=== PATIENT | male | born 1940 | race Asian ===

== ENCOUNTER 2016-12-07 22:30 | Emergency (ER) | payer MEDICARE, OTHER ==
[2016-12-07 22:51] VITALS: BP 150/71
--- NOTE | 2016-12-08 00:03 | ERNOTE ---
Lower Extremity HPI - General Lower Extremities Pain: thigh: right - rash and pain Time Seen by Provider: 12/07/16 23:54 Source: patient Exam Limitations: no limitations - Immun/Allergies/Home Medications Immunizations: IMMUNIZATION HX Immunizations Up to Date Yes History of Influenza Vaccine Yes Hx Pneumococcal Vaccination Yes Allergies/Adverse Reactions: Allergies Allergy/AdvReac Type Severity Reaction Status Date / Time No Known Drug Allergies Allergy Verified 12/07/16 22:52 Home Medications: HOME MEDICATIONS valACYclovir HCL [Valtrex] 1,000 mg PO TID #21 tab 12/08/16 [Last Taken Unknown] - History of Present Illness Narrative: Pt states he has had pain in his leg for about a week. Today he broke out in a rash in the same area Occurred: last week Review of Systems - Review of Systems Constitutional: Absent: recent illness, fever, chills EYE: Present: no symptoms reported ENT: Present: no symptoms reported Respiratory: Absent: cough Cardiology: Present: no symptoms reported Gastrointestinal/Abdominal: Present: no symptoms reported Genitourinary: Present: no symptoms reported Musculoskeletal: Present: muscle pain Skin: Present: See HPI Neurological: Absent: numbness, tingling Endocrine: Present: no symptoms reported Hematologic/Lymphatic: Present: no symptoms reported Psych: Present: no symptoms reported - Patient's Past Medical History Patient History - Medical: No pertinent hx Patient History - Cardiac/Respiratory: Hyperlipidemia Patient History - Cancer: No Hx of Cancer Patient History - Surgical Procedures: No surgical history Patient History - Other: None - Social History Living Situations: home Psych History: No pertinent hx Smoking Status: Never smoker Alcohol Use: none Drug Use: none - Immunizations Immunizations Up to Date: Yes Hx Pneumococcal Vaccination: Yes History of Influenza Vaccine: Yes Physical Exam - Physical Exam General Appearance: Present: wd/wn, alert, no apparent distress Head Exam: Present: normal inspection Eye Exam: Normal inspection: bilateral Neck: Present: normal inspection, nontender Respiratory: Present: no respiratory distress, no accessory muscle use Extremity Exam: Present: other - right thigh rash Neurological Exam: Present: alert, oriented, normal mood/affect Skin Exam: Present: skin rash - papular- right thigh in a dermatomal pattern anterior and down to the knee ED Progress - Vital Signs Vital Signs: Vital Signs 12/07/16 22:47 Temperature 36.9 C Pulse Rate 65 Respiratory 18 Rate Blood Pressure 150/71 O2 Sat by Pulse 98 Oximetry - Progress/Reassessment Chief Complaint: Lower Extremity Pain/ Injury Departure Clinical Impression: Shingles Qualifiers: Herpes zoster complications: without complications Qualified Code(s): B02.9 - Zoster without complications - Departure Disposition: Home self-care Condition: Good Instructions: Shingles, [id number] Referrals: Tayla Villavicencio FNP [Primary Care Provider] - Prescriptions: valACYclovir HCL [Valtrex] 1,000 mg PO TID #21 tab
[2016-12-08] MEDS ORDERED: ACYCLOVIR 800 MG TABLET PO ONE (00:10)
[2016-12-08] MEDS ORDERED: ACYCLOVIR 800 MG TABLET ONE (00:15)
--- OUTSIDE RECORDS SUMMARY | 2016-12-08 00:39 | XMS REPORT | Summary of Care ---
:1940 Author Organization [facility] Address [address] [place] [id number] Care Team Providers Name Role Phone Tere Villavicencio Primary Care Physician Encounter Date(s): 05/23/16 - 05/23/[address] [address] [place] Discharge Disposition: 01 Discharged to Home or Self Care Attending Physician: [place] Driver Referring Physician: [place] Driver Vital Signs No data available for this section Problem List Condition Effective Dates Status Health Status Informant Benign prostatic Active hypertrophy(Confirmed) Gastric ulcer NOS(Confirmed) Active Hypercholesteremia(Confirmed) Active Personal history of colonic Active polyps(Confirmed) Allergies, Adverse Reactions, Alerts Substance Reaction Severity Status Effexor Nausea and vomiting Active Lexapro Nausea and vomiting Active Paxil Nausea and vomiting Active Rozerem not effective Active terazosin Dizzy Active traZODone no relief Active Zoloft Nausea and vomiting Active zolpidem not effective Active Medications ALPRAZolam 0.25 mg oral tablet 1 tab(s), Oral, HS, PRN insomnia, # 30 tab(s), 5 Refill(s), Start Date: 6:50:28 CDT, called to pharmacy (Rx) Start Date: 02/10/16 Status: OrderedALPRAZolam 0.25 mg oral tablet 1 tab(s), Oral, HS, PRN insomnia, # 30 tab(s), 5 Refill(s), Start Date: 14:15:00 CDT Start Date: 02/09/16 Stop Date: 02/10/16 Status: DiscontinuedCalcium 600+D 600 mg-200 intl units oral tablet 1 tab(s), Oral, BID, 0 Refill(s), Start Date: 05/22/14 16:27:00 HR PAYROLL COORDINATOR Start Date: 05/22/14 Status: OrderedDaily Multiple Vitamins 1 tab(s), Oral, Daily, 0 Refill(s), Start Date: 05/22/14 16:28:00 HR PAYROLL COORDINATOR Start Date: 05/22/14 Status: OrderedHYDROcodone-acetaminophen 5 mg-325 mg oral tablet 1-2 tabs, Oral, q4hr, PRN for pain, # 40 tab(s), 0 Refill(s), Start Date: 11:36:04 CDT Start Date: 09/08/14 Stop Date: 05/25/15 Status: CompletedHYDROcodone-acetaminophen 5 mg-325 mg oral tablet 1-2 tabs, Oral, q4hr, PRN for pain, # 40 tab(s), 0 Refill(s), Start Date: 11:04:33 HR PAYROLL COORDINATOR Start Date: 05/25/15 Stop Date: 02/09/16 Status: DiscontinuedHYDROcodone-acetaminophen 5 mg-325 mg oral tablet 1-2 tabs, Oral, q4hr, PRN for pain, # 40 tab(s), 1 Refill(s), Start Date: 17:09:00 CDT, called to pharmacy (Rx) Start Date: 01/24/14 Stop Date: 09/08/14 Status: CompletedHYDROcodone-acetaminophen 5 mg-325 mg oral tablet 1-2 tabs, Oral, q4hr, PRN for pain, 0 Refill(s) Start Date: 01/24/14 Stop Date: 01/24/14 Status: DiscontinuedHYDROcodone-acetaminophen 5mg-325mg oral tablet 1-2 tabs, Oral, q4hr, PRN for pain, # 40 tab(s), 0 Refill(s), Start Date: 13:56:47 CDT Start Date: 02/09/16 Status: OrderedPriLOSEC 20 mg oral delayed release capsule 1 cap(s), Oral, Daily, # 90 cap(s), 3 Refill(s), Start Date: 02/09/16 13:56:51 CDT, Pharmacy: [facility] Start Date: 02/09/16 Stop Date: 05/12/16 Status: CompletedPriLOSEC 20 mg oral delayed release capsule 1 cap(s), Oral, Daily, # 90 cap(s), 3 Refill(s), Start Date: 05/23/14 15:50:00 HR PAYROLL COORDINATOR, Pharmacy: [facility] Start Date: 05/23/14 Stop Date: 05/25/15 Status: DiscontinuedPriLOSEC 20 mg oral delayed release capsule 1 cap(s), Oral, Daily, # 90 cap(s), 3 Refill(s), Start Date: 05/12/16 17:07:50 HR PAYROLL COORDINATOR, Pharmacy: [facility] Start Date: 05/12/16 Status: OrderedPriLOSEC 20 mg oral delayed release capsule 1 cap(s), Oral, Daily, # 30 cap(s), 0 Refill(s), Start Date: 05/22/14 16:28:00 HR PAYROLL COORDINATOR Start Date: 05/22/14 Stop Date: 05/23/14 Status: DiscontinuedPriLOSEC 20 mg oral delayed release capsule 1 cap(s), Oral, Daily, # 90 cap(s), 3 Refill(s), Start Date: 05/25/15 11:37:49 HR PAYROLL COORDINATOR, Pharmacy: [facility] Start Date: 05/25/15 Stop Date: 02/09/16 Status: Discontinuedsimvastatin 40 mg oral tablet 1 tab(s), Oral, HS, # 90 tab(s), 3 Refill(s), Start Date: 02/09/16 13:56:53 CDT , Pharmacy: [facility] Start Date: 02/09/16 Stop Date: 05/12/16 Status: Completedsimvastatin 40 mg oral tablet 1 tab(s), Oral, HS, # 90 tab(s), 3 Refill(s), Start Date: 05/23/14 15:51:00 HR PAYROLL COORDINATOR , Pharmacy: [facility] Start Date: 05/23/14 Stop Date: 05/25/15 Status: Discontinuedsimvastatin 40 mg oral tablet 1 tab(s), Oral, HS, # 90 tab(s), 3 Refill(s), Start Date: 05/12/16 17:07:37 HR PAYROLL COORDINATOR , Pharmacy: [facility] Start Date: 05/12/16 Status: Orderedsimvastatin 40 mg oral tablet 1 tab(s), Oral, HS, # 30 tab(s), 0 Refill(s), Start Date: 05/22/14 16:28:00 HR PAYROLL COORDINATOR Start Date: 05/22/14 Stop Date: 05/23/14 Status: Discontinuedsimvastatin 40 mg oral tablet 1 tab(s), Oral, HS, # 90 tab(s), 3 Refill(s), Start Date: 05/25/15 11:37:59 HR PAYROLL COORDINATOR , Pharmacy: [facility] Start Date: 05/25/15 Stop Date: 02/09/16 Status: Discontinuedtamsulosin 0.4 mg oral capsule See Instructions, 1-2 cap(s) Oral Daily 30 minutes after the same meal, 0 Refill(s), Start Date: 05/22/14 16:29:00 HR PAYROLL COORDINATOR Start Date: 05/22/14 Stop Date: 05/23/14 Status: CompletedtraMADol 50 mg oral tablet 1 tab(s), Oral, q4hr interval, PRN as needed for pain, 0 Refill(s), Start Date: 05/22/14 16:30:00 HR PAYROLL COORDINATOR Start Date: 05/22/14 Stop Date: 09/22/14 Status: DiscontinuedtraMADol 50 mg oral tablet 1 tab(s), Oral, q4hr interval, PRN as needed for pain, # 180 tab(s), 5 Refill(s) , Start Date: 02/09/16 13:57:32 CDT Start Date: 02/09/16 Stop Date: 05/12/16 Status: CompletedtraMADol 50 mg oral tablet 1 tab(s), Oral, q4hr interval, PRN as needed for pain, # 180 tab(s), 1 Refill(s) , Start Date: 09/08/15 16:18:24 CDT Start Date: 09/08/15 Stop Date: 02/09/16 Status: DiscontinuedtraMADol 50 mg oral tablet 1 tab(s), Oral, q4hr interval, PRN as needed for pain, # 180 tab(s), 5 Refill(s) , Start Date: 05/12/16 17:08:31 HR PAYROLL COORDINATOR, other reason (Rx) Start Date: 05/12/16 Status: OrderedtraMADol 50 mg oral tablet 1 tab(s), Oral, q4hr interval, PRN as needed for pain, # 180 tab(s), 1 Refill(s) , Start Date: 12/08/14 12:28:50 CDT, called to pharmacy (Rx) Start Date: 12/08/14 Stop Date: 09/08/15 Status: CompletedtraMADol 50 mg oral tablet 1 tab(s), Oral, q4hr interval, PRN as needed for pain, # 180 tab(s), 0 Refill(s) , Start Date: 09/22/14 16:36:00 CDT, called to pharmacy (Rx) Start Date: 09/22/14 Stop Date: 12/08/14 Status: CompletedTylenol 650 mg, Oral, not to exceed 4000 mg/day, 0 Refill(s), Start Date: 05/22/14 16:30 :00 HR PAYROLL COORDINATOR Start Date: 05/22/14 Status: OrderedVitamin D3 1000 intl units oral tablet 1 tab(s), Oral, Daily, # 30 tab(s), 0 Refill(s), Start Date: 05/22/14 16:37:00 HR PAYROLL COORDINATOR Start Date: 05/22/14 Status: Ordered Results No data available for this section Immunizations Given and Recorded Vaccine Date Status Refusal Reason influenza virus vaccine, inactivated 02/20/15 Given influenza virus vaccine, inactivated 02/13/14 Given pneumococcal 13-valent conjugate vaccine 05/25/15 Given pneumococcal 23-polyvalent vaccine 04/18/08 Recorded Procedures Procedure Date Related Diagnosis Body Site Colonoscopy1 Esophagogastroduodenoscopy2 l; ; 04/2004 Social History No data available for this section Assessment and Plan No data available for this section
--- OUTSIDE RECORDS SUMMARY | 2016-12-08 00:39 | XMS REPORT | Summary of Care ---
:1940 Author Organization [facility] Address [address] [place] [id number] Care Team Providers Name Role Phone Tere Villavicencio Primary Care Physician Encounter Date(s): 05/26/16 - 05/26/[address] [address] [place] Discharge Diagnosis: Encounter for general adult medical examination with abnormal findings Discharge Diagnosis: Insomnia Discharge Diagnosis: GERD without esophagitis Discharge Diagnosis: Lumbar pain Discharge Diagnosis: BPH without obstruction/lower urinary tract symptoms Discharge Diagnosis: Mixed hyperlipidemia Discharge Disposition: Discharged to Home or Self Care Attending Physician: [place] Driver Referring Physician: Carlos Maxwell MD Vital Signs Most recent to oldest [Reference Range]: 1 Peripheral Pulse Rate [60-100 bpm] 64 bpm (05/26/16 12:52 PM) SpO2 96 % (05/26/16 12:52 PM) SpO2 Location Right hand (05/26/16 12:52 PM) Blood Pressure [90-130/60-90 mmHg] 130/64mmHg (05/26/16 12:52 PM) Mean Arterial Pressure, Cuff 86 mmHg (05/26/16 12:52 PM) Height/Length Measured 171 cm (05/26/16 12:52 PM) Weight Dosing 64.90 kg1 (05/26/16 12:56 PM) Weight Measured 64.9 kg (05/26/16 12:52 PM) BSA Measured 1.76 m2 (05/26/16 12:52 PM) Body Mass Index Measured 22.19 kg/m2 (05/26/16 12:52 PM) 1Result Comment: This result was because the dosing weight was either not entered or it is>30 days old. This result is based off: Weight Measured May 26, 2016 12:52:00 FLEET DRIVER by Michelle Nunn [facility] Problem List Condition Effective Dates Status Health Status Informant Benign prostatic Active hypertrophy(Confirmed) BPH without obstruction/lower urinary Active tract symptoms(Confirmed) GERD without esophagitis(Confirmed) Active Gastric ulcer NOS(Confirmed) Active Hypercholesteremia(Confirmed) Active Insomnia(Confirmed) Active Mixed hyperlipidemia(Confirmed) Active Mixed hyperlipidemia(Confirmed) Active Personal history of colonic Active polyps(Confirmed) Allergies, Adverse Reactions, Alerts Substance Reaction Severity Status ALPRAZolam Wakefulness Active Effexor Nausea and vomiting Active Lexapro Nausea and vomiting Active Paxil Nausea and vomiting Active Rozerem not effective Active terazosin Dizzy Active traZODone no relief Active Zoloft Nausea and vomiting Active zolpidem not effective Active Medications ALPRAZolam 0.25 mg oral tablet 1 tab(s), Oral, HS, PRN insomnia, # 30 tab(s), 5 Refill(s), Start Date: 6:50:28 CDT, called to pharmacy (Rx) Start Date: 02/10/16 Stop Date: 05/26/16 Status: DiscontinuedALPRAZolam 0.25 mg oral tablet 1 tab(s), Oral, HS, PRN insomnia, # 30 tab(s), 5 Refill(s), Start Date: 14:15:00 CDT Start Date: 02/09/16 Stop Date: 02/10/16 Status: DiscontinuedCalcium 600+D 600 mg-200 intl units oral tablet 1 tab(s), Oral, BID, 0 Refill(s), Start Date: 05/22/14 16:27:00 FLEET DRIVER Start Date: 05/22/14 Status: OrderedDaily Multiple Vitamins 1 tab(s), Oral, Daily, 0 Refill(s), Start Date: 05/22/14 16:28:00 FLEET DRIVER Start Date: 05/22/14 Status: OrderedHYDROcodone-acetaminophen 5 mg-325 mg oral tablet 1-2 tabs, Oral, q4hr, PRN for pain, # 40 tab(s), 0 Refill(s), Start Date: 11:36:04 CDT Start Date: 09/08/14 Stop Date: 05/25/15 Status: CompletedHYDROcodone-acetaminophen 5 mg-325 mg oral tablet 1-2 tabs, Oral, q4hr, PRN for pain, # 40 tab(s), 0 Refill(s), Start Date: 11:04:33 FLEET DRIVER Start Date: 05/25/15 Stop Date: 02/09/16 Status: [...] Refill(s), Start Date: 02/09/16 13:56:51 CDT, Pharmacy: [facility] Start Date: 02/09/16 Stop Date: 05/12/16 Status: CompletedPriLOSEC 20 mg oral delayed release capsule 1 cap(s), Oral, Daily, # 90 cap(s), 3 Refill(s), Start Date: 05/23/14 15:50:00 FLEET DRIVER, [facility]acy: [facility] Start Date: 05/23/14 Stop Date: 05/25/15 Status: DiscontinuedPriLOSEC 20 mg oral delayed release capsule 1 cap(s), Oral, Daily, # 90 cap(s), 3 Refill(s), Start Date: 05/12/16 17:07:50 FLEET DRIVER, Pharmacy: [facility] Start Date: 05/12/16 Stop Date: 05/26/16 Status: DiscontinuedPriLOSEC 20 mg oral delayed release capsule 1 cap(s), Oral, Daily, # 30 cap(s), 0 Refill(s), Start Date: 05/22/14 16:28:00 FLEET DRIVER Start Date: 05/22/14 Stop Date: 05/23/14 Status: DiscontinuedPriLOSEC 20 mg oral delayed release capsule 1 cap(s), Oral, Daily, # 90 cap(s), 3 Refill(s), Start Date: 05/26/16 13:22:35 FLEET DRIVER, Pharmacy: [facility] Start Date: 05/26/16 Status: OrderedPriLOSEC 20 mg oral delayed release capsule 1 cap(s), Oral, Daily, # 90 cap(s), 3 Refill(s), Start Date: 05/25/15 11:37:49 FLEET DRIVER, Pharmacy: [facility] Start Date: 05/25/15 Stop Date: 02/09/16 Status: Discontinuedsimvastatin 40 mg oral tablet 1 tab(s), Oral, HS, # 90 tab(s), 3 Refill(s), Start Date: 02/09/16 13:56:53 CDT , Pharmacy: [facility] Start Date: 02/09/16 Stop Date: 05/12/16 Status: Completedsimvastatin 40 mg oral tablet 1 tab(s), Oral, HS, # 90 tab(s), 3 Refill(s), Start Date: 05/23/14 15:51:00 FLEET DRIVER , Pharmacy: [facility] Start Date: 05/23/14 Stop Date: 05/25/15 Status: Discontinuedsimvastatin 40 mg oral tablet 1 tab(s), Oral, HS, # 90 tab(s), 3 Refill(s), Start Date: 05/12/16 17:07:37 FLEET DRIVER , Pharmacy: [facility] Start Date: 05/12/16 Stop Date: 05/26/16 Status: Discontinuedsimvastatin 40 mg oral tablet 1 tab(s), Oral, HS, # 30 tab(s), 0 Refill(s), Start Date: 05/22/14 16:28:00 FLEET DRIVER Start Date: 05/22/14 Stop Date: 05/23/14 Status: Discontinuedsimvastatin 40 mg oral tablet 1 tab(s), Oral, HS, # 90 tab(s), 3 Refill(s), Start Date: 05/26/16 13:22:37 FLEET DRIVER , Pharmacy: [facility] Start Date: 05/26/16 Status: Orderedsimvastatin 40 mg oral tablet 1 tab(s), Oral, HS, # 90 tab(s), 3 Refill(s), Start Date: 05/25/15 11:37:59 FLEET DRIVER , Pharmacy: [facility] Start Date: 05/25/15 Stop Date: 02/09/16 Status: Discontinuedtamsulosin 0.4 mg oral capsule See Instructions, 1-2 cap(s) Oral Daily 30 minutes after the same meal, 0 Refill(s), Start Date: 05/22/14 16:29:00 FLEET DRIVER Start Date: 05/22/14 Stop Date: 05/23/14 Status: CompletedtraMADol 50 mg oral tablet 1 tab(s), Oral, q4hr interval, PRN as needed for pain, 0 Refill(s), Start Date: 05/22/14 16:30:00 FLEET DRIVER Start Date: 05/22/14 Stop Date: 09/22/14 Status: [...] 5 Refill(s) , Start Date: 05/12/16 17:08:31 FLEET DRIVER, other reason (Rx) Start Date: 05/12/16 Status: [...] 0 Refill(s), Start Date: 05/22/14 16:30 :00 FLEET DRIVER Start Date: 05/22/14 Status: OrderedVitamin D3 1000 intl units oral tablet 1 tab(s), Oral, Daily, # 30 tab(s), 0 Refill(s), Start Date: 05/22/14 16:37:00 FLEET DRIVER Start Date: 05/22/14 Status: Ordered Results No data available for this section Immunizations Given and Recorded Vaccine Date Status Refusal Reason influenza virus vaccine, inactivated 02/20/15 Given influenza virus vaccine, inactivated 02/13/14 Given pneumococcal 13-valent conjugate vaccine 05/25/15 Given pneumococcal 23-polyvalent vaccine 04/18/08 Recorded Procedures Procedure Date Related Diagnosis Body Site Colonoscopy1 Esophagogastroduodenoscopy2 ; ; 04/2004 Social History No data available for this section Assessment and Plan No data available for this section
--- OUTSIDE RECORDS SUMMARY | 2016-12-08 00:39 | XMS REPORT | Summary of Care ---
:1940 Author Organization [employer] [facility] [employer] Address [address] [place] [id number] Care Team Providers Name Role Phone Tere Villavicencio Primary Care Physician Encounter Date(s): 06/20/16 - 06/20/[address] [id number] [place] Discharge Disposition: 01 Discharged to Home or Self Care Attending Physician: [place] Driver Referring Physician: [place] Driver Vital Signs Most recent to oldest [Reference Range]: 1 Temperature Tympanic [36.6-38.1 DegC] 37.7 DegC (06/20/16 3:28 PM) Temperature C to F 99.9 (06/20/16 3:28 PM) Peripheral Pulse Rate [60-100 bpm] 88 bpm (06/20/16 3:28 PM) Respiratory Rate [12-20 br/min] 16 br/min (06/20/16 3:28 PM) SpO2 96 % (06/20/16 3:28 PM) SpO2 Location Right hand (06/20/16 3:28 PM) Blood Pressure [90-130/60-90 mmHg] 118/68mmHg (06/20/16 3:28 PM) Mean Arterial Pressure, Cuff 85 mmHg (06/20/16 3:28 PM) Most recent to oldest [Reference Range]: 1 Height/Length Measured 171 cm (06/20/16 3:28 PM) Weight Dosing 62.50 kg1 (06/20/16 3:32 PM) Weight Measured 62.5 kg (06/20/16 3:28 PM) BSA Measured 1.73 m2 (06/20/16 3:28 PM) Body Mass Index Measured 21.37 kg/m2 (06/20/16 3:28 PM) 1Result Comment: This result was because the dosing weight was either not entered or it is>30 days old. This result is based off: Weight Measured June 20, 2016 15:28:00 [employer] by Michelle Nunn [facility] Problem List Condition Effective Dates Status Health [...] BID, 0 Refill(s), Start Date: 05/22/14 16:27:00 [employer] Start Date: 05/22/14 Status: OrderedDaily Multiple Vitamins 1 tab(s), Oral, Daily, 0 Refill(s), Start Date: 05/22/14 16:28:00 [employer] Start Date: 05/22/14 Status: OrderedHYDROcodone-acetaminophen 5 mg-325 mg oral tablet 1-2 tabs, Oral, q4hr, PRN for pain, # 40 tab(s), 0 Refill(s), Start Date: 11:36:04 CDT Start Date: 09/08/14 Stop Date: 05/25/15 Status: CompletedHYDROcodone-acetaminophen 5 mg-325 mg oral tablet 1-2 tabs, Oral, q4hr, PRN for pain, # 40 tab(s), 0 Refill(s), Start Date: 11:04:33 [employer] Start Date: 05/25/15 Stop Date: 02/09/16 Status: [...] Refill(s), Start Date: 02/09/16 13:56:51 CDT, Pharmacy: [facility] Start Date: 02/09/16 Stop Date: 05/12/16 Status: CompletedPriLOSEC 20 mg oral delayed release capsule 1 cap(s), Oral, Daily, # 90 cap(s), 3 Refill(s), Start Date: 05/23/14 15:50:00 [employer], Pharmacy: [facility] Start Date: 05/23/14 Stop Date: 05/25/15 Status: DiscontinuedPriLOSEC 20 mg oral delayed release capsule 1 cap(s), Oral, Daily, # 90 cap(s), 3 Refill(s), Start Date: 05/12/16 17:07:50 [employer]PRESSED [employer], Pharmacy: [facility] Start Date: 05/12/16 Stop Date: 05/26/16 Status: DiscontinuedPriLOSEC 20 mg oral delayed release capsule 1 cap(s), Oral, Daily, # 30 cap(s), 0 Refill(s), Start Date: 05/22/14 16:28:00 [employer] Start Date: 05/22/14 Stop Date: 05/23/14 Status: DiscontinuedPriLOSEC 20 mg oral delayed release capsule 1 cap(s), Oral, Daily, # 90 cap(s), 3 Refill(s), Start Date: 05/26/16 13:22:35 [employer], Pharmacy: [facility] Start Date: 05/26/16 Status: OrderedPriLOSEC 20 mg oral delayed release capsule 1 cap(s), Oral, Daily, # 90 cap(s), 3 Refill(s), Start Date: 05/25/15 11:37:49 [employer], Pharmacy: [facility] Start Date: 05/25/15 Stop Date: 02/09/16 Status: Discontinuedpromethazine 12.5 mg oral tablet See Instructions, PRN for nausea/vomiting, 1 or 2 tablets every 6 hours as needed for nausea, # 20 tab(s), 0 Refill(s), Start Date: 06/20/16 16:49:07 [employer] Special Instructions: 1 or 2 tablets every 6 hours as needed for nausea Start Date: 06/20/16 Status: Orderedpromethazine 12.5 mg oral tablet See Instructions, PRN for nausea/vomiting, 1 or 2 tablets every 6 hours as needed for nausea, # 20 tab(s), 0 Refill(s), Start Date: 06/20/16 16:47:00 [employer], [facility] [place] Special Instructions: 1 or 2 tablets every 6 hours as needed for nausea Start Date: 06/20/16 Stop Date: 06/20/16 Status: Completedsimvastatin 40 mg oral tablet 1 tab(s), Oral, HS, # 90 tab(s), 3 Refill(s), Start Date: 02/09/16 13:56:53 CDT , Pharmacy: [facility] Start Date: 02/09/16 Stop Date: 05/12/16 Status: Completedsimvastatin 40 mg oral tablet 1 tab(s), Oral, HS, # 90 tab(s), 3 Refill(s), Start Date: 05/23/14 15:51:00 [employer] , Pharmacy: [facility] Start Date: 05/23/14 Stop Date: 05/25/15 Status: Discontinuedsimvastatin 40 mg oral tablet 1 tab(s), Oral, HS, # 90 tab(s), 3 Refill(s), Start Date: 05/12/16 17:07:37 COM[employer]ED [employer] , Pharmacy: [facility] Start Date: 05/12/16 Stop Date: 05/26/16 Status: Discontinuedsimvastatin 40 mg oral tablet 1 tab(s), Oral, HS, # 30 tab(s), 0 Refill(s), Start Date: 05/22/14 16:28:00 [employer] Start Date: 05/22/14 Stop Date: 05/23/14 Status: Discontinuedsimvastatin 40 mg oral tablet 1 tab(s), Oral, HS, # 90 tab(s), 3 Refill(s), Start Date: 05/26/16 13:22:37 COM[employer] , Pharmacy: [facility] Start Date: 05/26/16 Status: Orderedsimvastatin 40 mg oral tablet 1 tab(s), Oral, HS, # 90 tab(s), 3 Refill(s), Start Date: 05/25/15 11:37:59 COM[employer]ED [employer] , Pharmacy: [facility] Start Date: 05/25/15 Stop Date: 02/09/16 Status: Discontinuedtamsulosin 0.4 mg oral capsule See Instructions, 1-2 cap(s) Oral Daily 30 minutes after the same meal, 0 Refill(s), Start Date: 05/22/14 16:29:00 [employer] Special Instructions: 1-2 cap(s) Oral Daily 30 minutes after the same meal Start Date: 05/22/14 Stop Date: 05/23/14 Status: CompletedtraMADol 50 mg oral tablet 1 tab(s), Oral, q4hr interval, PRN as needed for pain, 0 Refill(s), Start Date: 05/22/14 16:30:00 [employer] Start Date: 05/22/14 Stop Date: 09/22/14 Status: [...] 5 Refill(s) , Start Date: 05/12/16 17:08:31 COMPRESSED G[employer], other reason (Rx) Start Date: 05/12/16 Status: [...] 0 Refill(s), Start Date: 05/22/14 16:30 :00 [employer] Special Instructions: not to exceed 4000 mg/day Start Date: 05/22/14 Status: OrderedVitamin D3 1000 intl units oral tablet 1 tab(s), Oral, Daily, # 30 tab(s), 0 Refill(s), Start Date: 05/22/14 16:37:00 [employer] Start Date: 05/22/14 Status: Ordered Results No data available for this section Immunizations Vaccine Date Refusal Reason influenza virus vaccine, inactivated 02/20/15 influenza virus vaccine, inactivated 02/13/14 pneumococcal 13-valent conjugate vaccine 05/25/15 pneumococcal 23-polyvalent vaccine 04/18/08 Procedures Procedure Date Related Diagnosis Body Site Colonoscopy1 Esophagogastroduodenoscopy2 ; ; 04/2004 Social History No data available for this section Assessment and Plan No data available for this section
--- OUTSIDE RECORDS SUMMARY | 2016-12-08 00:39 | XMS REPORT | Summary of Care ---
:1940 Author Organization [facility] Address [address] [place] [id number] Care Team Providers Name Role Phone Tere Villavicencio Primary Care Physician Encounter Date(s): 05/23/16 - 05/23/[address] [phone]- [facility] Discharge Disposition: 01 Discharged to Home or Self Care Attending Physician: [place] Driver Admitting Physician: [place] Driver Vital Signs No data [...] BID, 0 Refill(s), Start Date: 05/22/14 16:27:00 [facility] Start Date: 05/22/14 Status: OrderedDaily Multiple Vitamins 1 tab(s), Oral, Daily, 0 Refill(s), Start Date: 05/22/14 16:28:00 [facility] Start Date: 05/22/14 Status: OrderedHYDROcodone-acetaminophen 5 mg-325 mg oral tablet 1-2 tabs, Oral, q4hr, PRN for pain, # 40 tab(s), 0 Refill(s), Start Date: 11:36:04 CDT Start Date: 09/08/14 Stop Date: 05/25/15 Status: CompletedHYDROcodone-acetaminophen 5 mg-325 mg oral tablet 1-2 tabs, Oral, q4hr, PRN for pain, # 40 tab(s), 0 Refill(s), Start Date: 11:04:33 [facility] Start Date: 05/25/15 Stop Date: 02/09/16 Status: [...] Refill(s), Start Date: 02/09/16 13:56:51 CDT, Pharmacy: [facility] Start Date: 02/09/16 Stop Date: 05/12/16 Status: CompletedPriLOSEC 20 mg oral delayed release capsule 1 cap(s), Oral, Daily, # 90 cap(s), 3 Refill(s), Start Date: 05/23/14 15:50:00 [facility], Pharmacy: [facility] Start Date: 05/23/14 Stop Date: 05/25/15 Status: DiscontinuedPriLOSEC 20 mg oral delayed release capsule 1 cap(s), Oral, Daily, # 90 cap(s), 3 Refill(s), Start Date: 05/12/16 17:07:50 [facility], Pharmacy: [facility] Start Date: 05/12/16 Status: OrderedPriLOSEC 20 mg oral delayed release capsule 1 cap(s), Oral, Daily, # 30 cap(s), 0 Refill(s), Start Date: 05/22/14 16:28:00 [facility] Start Date: 05/22/14 Stop Date: 05/23/14 Status: DiscontinuedPriLOSEC 20 mg oral delayed release capsule 1 cap(s), Oral, Daily, # 90 cap(s), 3 Refill(s), Start Date: 05/25/15 11:37:49 [facility], Pharmacy: [facility] Start Date: 05/25/15 Stop Date: 02/09/16 Status: Discontinuedsimvastatin 40 mg oral tablet 1 tab(s), Oral, HS, # 90 tab(s), 3 Refill(s), Start Date: 02/09/16 13:56:53 CDT , Pharmacy: [facility] Start Date: 02/09/16 Stop Date: 05/12/16 Status: Completedsimvastatin 40 mg oral tablet 1 tab(s), Oral, HS, # 90 tab(s), 3 Refill(s), Start Date: 05/23/14 15:51:00 [facility] , Pharmacy: [facility] Start Date: 05/23/14 Stop Date: 05/25/15 Status: Discontinuedsimvastatin 40 mg oral tablet 1 tab(s), Oral, HS, # 90 tab(s), 3 Refill(s), Start Date: 05/12/16 17:07:37 [facility] , Pharmacy: [facility] Start Date: 05/12/16 Status: Orderedsimvastatin 40 mg oral tablet 1 tab(s), Oral, HS, # 30 tab(s), 0 Refill(s), Start Date: 05/22/14 16:28:00 [facility] Start Date: 05/22/14 Stop Date: 05/23/14 Status: Discontinuedsimvastatin 40 mg oral tablet 1 tab(s), Oral, HS, # 90 tab(s), 3 Refill(s), Start Date: 05/25/15 11:37:59 [facility] , Pharmacy: [facility] Start Date: 05/25/15 Stop Date: 02/09/16 Status: Discontinuedtamsulosin 0.4 mg oral capsule See Instructions, 1-2 cap(s) Oral Daily 30 minutes after the same meal, 0 Refill(s), Start Date: 05/22/14 16:29:00 [facility] Start Date: 05/22/14 Stop Date: 05/23/14 Status: CompletedtraMADol 50 mg oral tablet 1 tab(s), Oral, q4hr interval, PRN as needed for pain, 0 Refill(s), Start Date: 05/22/14 16:30:00 [facility] Start Date: 05/22/14 Stop Date: 09/22/14 Status: [...] 5 Refill(s) , Start Date: 05/12/16 17:08:31 [facility], other reason (Rx) Start Date: 05/12/16 Status: [...] 0 Refill(s), Start Date: 05/22/14 16:30 :00 [facility] Start Date: 05/22/14 Status: OrderedVitamin D3 1000 intl units oral tablet 1 tab(s), Oral, Daily, # 30 tab(s), 0 Refill(s), Start Date: 05/22/14 16:37:00 [facility] Start Date: 05/22/14 Status: Ordered Results Patient Viewable Results Most recent to oldest [Reference Range]: 1 WBC [4.8-10.8 thou/mm3] 4.4 thou/mm3 *LOW* (05/23/16 8:23 AM) RBC [4.60-6.00 Mil/mm3] 4.51 Mil/mm3 *LOW* (05/23/16 8:23 AM) Hgb [14.0-18.0 g/dL] 14.1 g/dL (05/23/16 8:23 AM) Hct [42.0-52.0 %] 42.9 % (05/23/16 8:23 AM) MCV [80.0-94.0 fL] 95.1 fL *HI* (05/23/16 8:23 AM) MCH [25.0-38.0 pg/cell] 31.3 pg/cell (05/23/16 8:23 AM) MCHC [31.0-37.0 g/dL] 32.9 g/dL (05/23/16 8:23 AM) RDW [1.0-48.0 fL] 43.0 fL (05/23/16 8:23 AM) Platelet [130-400 thou/mm3] 190 thou/mm3 (05/23/16 8:23 AM) Neutrophils % Auto [50.0-75.0 %] 44.1 % *LOW* (05/23/16:23 AM) Immature Granulocyte Auto [0.1-2.0 %] 0.2 % (05/23/16 8:23 AM) Lymphocytes % Auto [15.0-41.0 %] 41.0 % (05/23/16 8:23 AM) Monocytes % Auto [2.0-10.0 %] 7.0 % (05/23/16 8:23 AM) Eosinophils % Auto [0.0-6.0 %] 6.8 % *HI* (05/23/16 8:23 AM) Basophil % Auto [0.0-1.0 %] 0.9 % (05/23/16 8:23 AM) Neutrophils Absolute [1.5-5.9 thou/mm3] 2.0 thou/mm3 (05/23/16 8:23 AM) Immature Gran Absolute [0.01-0.03 thou/mm3] 0.01 thou/mm3 (05/23/16 8:23 AM) Lymphocytes Absolute [1.5-4.0 thou/mm3] 1.8 thou/mm3 (05/23/16 8:23 AM) Monocytes Absolute [0.0-0.9 thou/mm3] 0.3 thou/mm3 (05/23/16 8:23 AM) Eosinophil Absolute [0.0-0.7 thou/mm3] 0.3 thou/mm3 (05/23/16 8:23 AM) Basophil Absolute [0.0-0.2 thou/mm3] 0.0 thou/mm3 (05/23/16 8:23 AM) Sodium Lvl [135-144 mEq/L] 141 mEq/L (05/23/16 8:23 AM) Potassium Lvl [3.3-4.8 mEq/L] 4.2 mEq/L (05/23/16 8:23 AM) Chloride Lvl [98-107 mEq/L] 102 mEq/L (05/23/16 8:23 AM) Bicarbonate Lvl [22-30 mmol/L] 31 mmol/L *HI* (05/23/16 8:23 AM) Anion Gap [10.0-20.0] 12.2 (05/23/16 8:23 AM) Glucose Lvl [70-108 mg/dL] 102 mg/dL (05/23/16 8:23 AM) BUN [7-21 mg/dL] 13 mg/dL (05/23/16 8:23 AM) Creatinine Lvl [0.50-1.20 mg/dL] 0.84 mg/dL (05/23/16 8:23 AM) BUN/Creat Ratio 15.5 *NA* (05/23/16 8:23 AM) eGFR AA [>=60] >60 (05/23/16 8:23 AM) eGFR GAYATRI [>=60] >60 (05/23/16 8:23 AM) Calcium Lvl [8.6-10.2 mg/dL] 9.1 mg/dL (05/23/16 8:23 AM) Total Protein [6.4-8.3 g/dL] 7.0 g/dL (05/23/16 8:23 AM) Albumin Lvl [3.5-5.2 g/dL] 4.2 g/dL (05/23/16 8:23 AM) Globulin 2.8 *NA* (05/23/16 8:23 AM) A/G Ratio [0.9-1.8] 1.5 (05/23/16 8:23 AM) Bilirubin Total [0.1-1.0 mg/dL] 0.5 mg/dL (05/23/16 8:23 AM) Alkaline Phosphatase [39-129 unit/L] 66 unit/L (05/23/16 8:23 AM) AST [0-39 unit/L] 19 unit/L (05/23/16 8:23 AM) ALT [0-40 unit/L] 14 unit/L (05/23/16 8:23 AM) Cholesterol Total [0-200 mg/dL] 156 mg/dL (05/23/16 8:23 AM) Triglyceride [0-199 mg/dL] 183 mg/dL (05/23/16 8:23 AM) HDL Cholesterol [40-100 mg/dL] 48 mg/dL (05/23/16 8:23 AM) LDL Cholesterol (Direct) [0-129 mg/dL] 85 mg/dL (05/23/16 8:23 AM) Non HDL Cholesterol [0-159 mg/dL] 108 mg/dL (05/23/16 8:23 AM) PSA Screen [0.0-4.0 ng/mL] 3.8 ng/mL (05/23/16 8:23 AM) Estimated Creatinine Clearance 63.97 mL/min (05/23/16 4:34 PM) Immunizations Given and Recorded Vaccine Date Status [...]
== END 2016-12-08 00:53 | disposition home or self-care (01) ==
LOC: ER 22:30
DX: B02.9 Zoster without complications (principal)